=== PATIENT | female | born 1970 | race American Indian/Alaskan Native ===

== ENCOUNTER 2021-03-26 12:47 | Observation (INO) | payer OTHER ==
[2021-03-26] MEDS ORDERED: ASPIRIN 325 MG TAB PO ONE (13:04)
--- NOTE | 2021-03-26 13:35 | Event Note ---
ED Screening Note Date of service: 03/26/21 Time: 13:33 ED Screening Note: 50-year-old female with a past medical history of IN in March 2020 status post 2 stent placement, history of gallstone pancreatitis which was diagnosed about a month ago, EtOH abuse, hypertension and hyperlipidemia presents to the ER today with complaints of epigastric and substernal chest pain. Onset was yesterday. Mainly in epigastric area but this morning started having the substernal chest pain. Reports associated diarrhea which has been black in color, dizziness and lightheadedness. She states that she took a nitro this morning and EMS also gave her nitro which did ease up the pain. She also got 4 baby aspirin's by EMS. Patient states that she was a heavy drinker up until March 2020 when she reduce her intake of alcohol she states that she completely stopped drinking about 6 weeks ago, but she states that her family came into town this past Friday and she had couple beers and liquor. This initial assessment/diagnostic orders/clinical plan/treatment(s) is/are subject to change based on patients health status, clinical progression and re- assessment by fellow clinical providers in the ED. Further treatment and workup at subsequent clinical providers discretion. Patient/guardian urged not to elope from the ED as their condition may be serious if not clinically assessed and managed. Initial orders include: Chest pain work-up including lipase.
--- NOTE | 2021-03-26 13:55 | XRay Report ---
CHEST 2 VIEWS INDICATION / CLINICAL INFORMATION: CHEST PAIN. COMPARISON: None available. FINDINGS: SUPPORT DEVICES: None. HEART / MEDIASTINUM: No significant abnormality. LUNGS / PLEURA: No significant pulmonary or pleural abnormality. No pneumothorax. ADDITIONAL FINDINGS: No significant additional findings. IMPRESSION: 1. No acute findings. Signer Name: Víctor Wang MD Signed: 03/26/2021 1:50 PM Workstation Name: [id number]
[2021-03-26 14:44] LABS: Basophils % (Auto) 0.6 % (0.0-1.8); Eosinophils % (Auto) 0.3 % (0.0-4.3); Hematocrit 38.3 % (30.3-42.9); Lymphocytes # (Auto) 2.1 K/mm3 (1.2-5.4); Lymphocytes % (Auto) 36.7 % (13.4-35.0); Mean Corpuscular HGB Conc 34 % (30-34); Mean Corpuscular Volume 99 fl (79-97); Monocytes # (Auto) 0.4 K/mm3 (0.0-0.8); Monocytes % (Auto) 6.5 % (0.0-7.3); Platelet Count 270 K/mm3 (140-440); Red Blood Count 3.85 M/mm3 (3.65-5.03); Red Cell Distribution Width 12.9 % (13.2-15.2)
[2021-03-26 17:19] LABS: Alanine Aminotransferase 17 units/L (7-56); Albumin 4.3 g/dL (3.9-5); Blood Urea Nitrogen 13 mg/dL (7-17); Calcium 8.9 mg/dL (8.4-10.2); Hemolysis Index 49
[2021-03-26 17:20] LABS: BUN/Creatinine Ratio 22
[2021-03-26] MEDS ORDERED: SODIUM CHLORIDE 0.9% 1000 ML 1,000 ML IV ONE (20:29)
[2021-03-26] MEDS ORDERED: MORPHINE 4 MG/1 ML INJ IV ONE (20:29)
--- NOTE | 2021-03-26 20:41 | Emergency Department Report ---
ED Chest Pain HPI - General Chief Complaint: Chest Pain Stated Complaint: CHEST PAIN Time Seen by Provider: 03/26/21 19:59 Source: patient, EMS Mode of arrival: Wheelchair Limitations: No Limitations - History of Present Illness Initial Comments: This is a 50-year-old -Niuean female presents to the emergency department with a complaint of epigastric abdominal pain since yesterday and some lower midsternal chest pain that started earlier today. Currently she says her discomfort is about a 6 out of 10 in intensity. She was diagnosed with ga llstone pancreatitis about 1 month ago and says that this feels similar but it was much more intense/painful when it first occurred. However the patient does have a history of coronary artery disease with [address] She also has a history of hypertension and is a tobacco smoker. She received a full dose aspirin and 2 sublingual nitroglycerin in route with EMS without much relief. Patient follows with a grounds restoration specialist through [place]. Unknown last stress test but says that her last heart attack was in March of last year. No recent travel or sick contacts at home. - Related Data Allergies Allergy/AdvReac Type Severity Reaction Status Date / Time ketorolac [From Toradol] Allergy Unknown Verified 03/26/21 13:02 latex Allergy Unknown Verified 03/26/21 13:02 Sulfa (Sulfonamide Allergy Unknown Verified 03/26/21 13:02 Antibiotics) tramadol Allergy Unknown Verified 03/26/21 13:02 Heart Score - HEART Score History: Slightly suspicious EKG: Normal Age: 45-65 Risk factors: > 3 risk factors or hx of atherosclerotic disease Troponin: < normal limit HEART Score: 3 - EKG Read Time Time EKG Completed: 13:00 EKG Read Time: 13:05 - Critical Actions Critical Actions: 0-3 pts:0.9-1.7%risk of adverse cardiac event.Candidate for discharge ED Review of Systems ROS: Stated complaint: CHEST PAIN Other details as noted in HPI Comment: All other systems reviewed and negative Constitutional: denies: chills, fever Eyes: denies: eye pain, vision change ENT: denies: ear pain, throat pain Respiratory: shortness of breath. denies: cough Cardiovascular: chest pain. denies: palpitations, edema Gastrointestinal: abdominal pain. denies: vomiting Genitourinary: denies: dysuria, discharge Musculoskeletal: denies: back pain, joint swelling Skin: denies: rash, lesions Neurological: denies: headache, weakness ED Past Medical Hx - Past Medical History Previous Medical History?: Yes Hx Heart Attack/AMI: Yes (STENT X2) Additional medical history: PANCREATITIS ED Physical Exam - General Limitations: No Limitations - Other Other exam information: GENERAL: The patient is well-developed well-nourished. HENT: Normocephalic. Atraumatic. Patient has moist mucous membranes. EYES: Extraocular motions are intact. NECK: Supple. Trachea is midline. CHEST/LUNGS: Clear to auscultation. There is no respiratory distress noted. HEART/CARDIOVASCULAR: Regular. There is no tachycardia. There is no murmur. ABDOMEN: Abdomen is soft. Upper abdominal tenderness to palpation. Patient has normal bowel sounds. There is no abdominal distention. SKIN: Skin is warm and dry. NEURO: The patient is awake, alert, and oriented. The patient is cooperative. The patient has no focal neurologic deficits. Normal speech. MUSCULOSKELETAL: There is no tenderness or deformity. There is no limitation range of motion. RECTAL: No hemorrhoids or external lesions seen. No gross hematochezia. There was not much stool obtained for guaiac testing but what was obtained appears brown and negative on guaiac testing. ED Course Vital Signs 03/26/21 03/26/21 03/26/21 13:02 20:13 20:15 Temperature 98.2 F Pulse Rate 90 77 79 Respiratory 18 16 18 Rate Blood Pressure 166/94 Blood Pressure 132/92 [Right] O2 Sat by Pulse 99 100 100 Oximetry 03/26/21 03/26/21 03/26/21 20:30 20:45 21:00 Temperature Pulse Rate 77 81 77 Respiratory 16 15 15 Rate Blood Pressure 144/87 166/94 186/103 Blood Pressure [Right] O2 Sat by Pulse 100 99 100 Oximetry 03/26/21 03/26/21 03/26/21 21:15 21:30 21:45 Temperature Pulse Rate 74 76 76 Respiratory 17 16 17 Rate Blood Pressure 144/87 155/83 155/83 Blood Pressure [Right] O2 Sat by Pulse 100 100 100 Oximetry 03/26/21 03/26/21 03/26/21 22:00 22:15 22:30 Temperature Pulse Rate 74 74 73 Respiratory 13 13 15 Rate Blood Pressure 147/81 147/81 172/100 Blood Pressure [Right] O2 Sat by Pulse 100 100 100 Oximetry - Reevaluation(s) Reevaluation #1: 03/26/21 22:41 When the admitting hospitalist went to see the patient, she mentioned to him that she had been having dark black stools with some recent diarrhea. I did a rectal examination with nurse Daysi at bedside to financial advocate. There was not much stool obtained during the rectal examination. It appeared brown and was negative on guaiac testing. RADHA score - Radha Score Age > 65: (0) No Aspirin use within the Past 7 Days: (1) Yes 3 or more CAD Risk Factors: (1) Yes 2 or more Angina events in past 24 hrs: (1) Yes Known CAD with more than 50% Stenosis: (1) Yes Elevated Cardiac Markers: (0) No ST Deviation Greater than 0.5mm: (0) No RADHA Score: 4 ED Medical Decision Making - Lab Data Result diagrams: 03/26/21 14:18 03/26/21 15:26 - EKG Data -: EKG Interpreted by Me EKG shows normal: sinus rhythm, axis, intervals, QRS complexes, ST-T waves Rate: normal - EKG Data When compared to previous EKG there are: previous EKG unavailable Interpretation: normal EKG - Radiology Data Radiology results: report reviewed, image reviewed interpreted by me: Chest x-ray does not show any acute process. There are no pleural effusions, obvious pneumonia and there is no pneumothorax. No significant cardiomegaly. ULTRASOUND ABDOMEN, LIMITED (RIGHT UPPER QUADRANT) INDICATION / CLINICAL INFORMATION: upper abdominal pain. COMPARISON: None available. FINDINGS: PANCREAS: Visualized portion shows no significant abnormality. LIVER: No significant abnormality. GALLBLADDER: No significant abnormality. BILE DUCTS: No significant abnormality. Common bile duct measures 2 mm. FREE FLUID: None. ADDITIONAL FINDINGS: None. IMPRESSION: 1. No significant sonographic abnormality of the right upper quadrant. - Medical Decision Making This patient presents to the emergency department with a complaint of upper abdominal pain and midsternal chest pain. EKG did not have any morphology consistent with ST elevation myocardial infarction. Chest x-ray does not show any pneumonia, pleural effusions, pneumothorax, or any other acute process. On examination the patient has normal sounding heart and lungs to auscultation. She does not appear in any respiratory or acute distress. There is reproducible abdominal tenderness to palpation. Patient's labs have been mostly unremarkable including CBC, metabolic panel, negative troponins x3, but she had a slightly elevated lipase level. She says that she has a recent history of cholelithiasis. Upper abdominal ultrasound is negative for any cholelithiasis, cholecystitis, obvious pancreatitis, or any other acute processes. The patient has a moderate heart and RADHA score. She has a history of coronary artery disease with cardiac stents in place. I was unable to find an obvious GI reason for her chest pain. For this reason, the patient will be admitted to the hospital for further evaluation and has been accepted for admission by the hospitalist, Dr Grimes. Critical Care Time: No Critical care attestation.: If time is entered above; I have spent that time in minutes in the direct care of this critically ill patient, excluding procedure time. ED Disposition Clinical Impression: Acute chest pain, Tobacco use Hypertension Qualifiers: Hypertension type: essential hypertension Qualified Code(s): I10 - Essential (primary) hypertension Abdominal pain Qualifiers: Abdominal location: upper abdomen, unspecified Qualified Code(s): R10.10 - Upper abdominal pain, unspecified Disposition: DC-09 OP ADMIT IP TO THIS HOSP Is pt being admited?: Yes Condition: Fair Time of Disposition: 22:23
--- NOTE | 2021-03-26 22:19 | Ultrasound Report ---
I'v ULTRASOUND ABDOMEN, LIMITED (RIGHT UPPER QUADRANT) INDICATION / CLINICAL INFORMATION: upper abdominal pain. COMPARISON: None available. FINDINGS: PANCREAS: Visualized portion shows no significant abnormality. LIVER: No significant abnormality. GALLBLADDER: No significant abnormality. BILE DUCTS: No significant abnormality. Common bile duct measures 2 mm. FREE FLUID: None. ADDITIONAL FINDINGS: None. IMPRESSION: 1. No significant sonographic abnormality of the right upper quadrant. Signer Name: Nicolás Beatty MD Signed: 03/26/2021 10:15 PM Workstation Name: [id number]
[2021-03-26] MEDS ORDERED: ACETAMINOPHEN 325 MG TAB PO PRN ×2 (23:13)
[2021-03-26] MEDS ORDERED: MORPHINE 2 MG/1 ML INJ IV PRN (23:13)
[2021-03-26] MEDS ORDERED: MAGNESIUM HYDROXIDE (MOM) ORAL LIQD UDC PO PRN (23:13)
[2021-03-26] MEDS ORDERED: ONDANSETRON 4 MG/2 ML INJ IV PRN (23:13)
[2021-03-26] MEDS ORDERED: NITROGLYCERIN 0.4 MG TAB SUBL SL PRN (23:13)
[2021-03-26] MEDS ORDERED: LIDOCAINE VISCOUS 2% 15 ML ORAL LIQD PO ONE (23:15)
[2021-03-26] MEDS ORDERED: ALUM-MAG HYDROXIDE-SIMETHICONE 200-200-20MG/5ML ORAL LIQD 30 ML PO ONE (23:30)
[2021-03-26] MEDS ORDERED: diphenhydrAMINE 25 MG/10 ML ORAL LIQUID FEEDTUBE ONE (23:30)
--- NOTE | 2021-03-26 23:36 | History and Physical Report ---
History of Present Illness Date of examination: 03/26/21 Date of admission: 03/26/21 22:23 Chief complaint: Abdominal pain Chest pain History of present illness: 50-year-old -[place] female with known history of coronary artery disease with stent placement in the past presenting in the emergency room via EMS today complaining of epigastric abdominal pain and some midsternal chest pain both of which started yesterday. On a scale of 10 pain was about 6-7 over 10 in severity. Patient indicates she was diagnosed with gallstone and pancreatitis about a month ago and feels the pain is similar to when she had that episode. There is no no relieving or exacerbating factor. Patient is a current daily smoker. She received a full dose of aspirin and 2 sublingual nitroglycerin in route to the hospital without any significant relief. She also indicates that she has been taking some ibuprofen lately and has had black stool. She denies any bright red blood per rectum. She denies any hematemesis, no nausea vomiting, no headache or dizziness. Patient indicates she has been out of her blood pressure medications for couple of months and therefore has not been quite compliant. Work-up in the emergency room today has been unremarkable. Stool Hemoccult both done by ER physician-negative Patient is being admitted with chest pain and abdominal pain for evaluation. Past History Past Medical History: CAD (With stents in the past), other (History of pancreatitis) Past Surgical History: PTCA Social history: smoking (Current daily smoker), alcohol abuse (Drinks alcohol occasionally) Family history: no significant family history Medications and Allergies Allergies Allergy/AdvReac Type Severity Reaction Status Date / Time ketorolac [From Toradol] Allergy Unknown Verified 03/26/21 13:02 latex Allergy Unknown Verified 03/26/21 13:02 Sulfa (Sulfonamide Allergy Unknown Verified 03/26/21 13:02 Antibiotics) tramadol Allergy Unknown Verified 03/26/21 13:02 Active Meds: Active Medications Al Hydrox/Mg Hydrox/Simethicone (Alum-Mag Hydroxide-Simethicone 348-361-99gr/5ml Oral Liqd 30 Ml) 30 ml PO ONCE ONE Stop: 03/26/21 23:31 Last Admin: 03/26/21 23:21 Dose: 30 ml Documented by: Diphenhydramine HCl (Diphenhydramine 25 Mg/10 Ml Oral Liquid) 25 mg FEEDTUBE ONCE ONE Stop: 03/26/21 23:31 Last Admin: 03/26/21 23:21 Dose: 25 mg Documented by: Review of Systems Constitutional: no fever, no chills Ears, nose, mouth and throat: no nasal congestion, no sore throat Cardiovascular: chest pain, no palpitations Respiratory: no cough, no shortness of breath Gastrointestinal: abdominal pain, other (Black stool), no nausea, no vomiting, no diarrhea Genitourinary Female: no pelvic pain, no flank pain, no dysuria, no hematuria Musculoskeletal: no neck pain, no low back pain Integumentary: no rash, no pruritis Neurological: no headaches, no confusion Psychiatric: no anxiety, no depression Endocrine: no polyphagia, no polydipsia, no polyuria, no nocturia Exam - Constitutional Vitals: Temp Pulse Resp BP Pulse Ox 98.2 F 68 13 167/95 100 03/26/21 13:02 03/26/21 23:00 03/26/21 23:00 03/26/21 23:00 03/26/21 23:00 General appearance: Present: no acute distress, well-nourished - EENT Eyes: Present: PERRL, EOM intact. Absent: scleral icterus ENT: hearing intact, clear oral mucosa, dentition normal - Neck Neck: Present: supple, normal ROM - Respiratory Respiratory effort: normal Respiratory: bilateral: CTA - Cardiovascular Rhythm: regular Heart Sounds: Present: S1 & S2. Absent: gallop, systolic murmur, diastolic murmur, rub, click - Extremities Extremities: no ischemia, pulses intact, pulses symmetrical, No edema, normal temperature, normal color, Full ROM Peripheral Pulses: within normal limits - Abdominal General gastrointestinal: Present: soft, tender (Mild epigastric tenderness with minimal guarding, no rebound tenderness and no masses), non-distended, normal bowel sounds. Absent: mass - Integumentary Integumentary: Present: clear, warm, dry - Musculoskeletal Musculoskeletal: strength equal bilaterally - Psychiatric Psychiatric: appropriate mood/affect, intact judgment & insight, memory intact, cooperative - Neurologic Neurologic: CNII-XII intact, no focal deficits, moves all extremities HEART Score - HEART Score History: Slightly suspicious EKG: Normal Age: 45-65 Risk factors: > 3 risk factors or hx of atherosclerotic disease Troponin: Troponin T < 0.010 ng/mL (0.00-0.029) 03/26/21 21:16 Troponin: < normal limit HEART Score: 3 - Critical Actions Critical Actions: 0-3 pts:0.9-1.7%risk of adverse cardiac event.Candidate for discharge Results - Labs CBC & Chem 7: 03/26/21 14:18 03/26/21 15:26 Labs: Abnormal lab results 03/26/21 03/26/21 03/26/21 Range/Units 13:32 14:18 15:26 MCV 99 H (79-97) fl MCH 34 H (28-32) pg RDW 12.9 L (13.2-15.2) % Lymph % (Auto) 36.7 H (13.4-35.0) % Carbon Dioxide 15 L (22-30) mmol/L Glucose 45 L (65-100) mg/dL AST 48 H (5-40) units/L Lipase 64 H (13-60) units/L Assessment and Plan - Patient Problems (1) Acute chest pain Current Visit: Yes Status: Acute Plan to address problem: Patient admitted and placed on telemetry.. We will check serial cardiac enzymes. Patient started on aspirin, sublingual nitroglycerin and IV morphine as needed for chest pain. Patient will be scheduled for echocardiogram and stress test. We await further evaluation and recommendation from cardiology. (2) Abdominal pain Current Visit: Yes Status: Acute Qualifiers: Abdominal location: upper abdomen, unspecified Qualified Code(s): R10.10 - Upper abdominal pain, unspecified Plan to address problem: Possibly secondary to gastritis. Patient given GI cocktail in the emergency room. Will place on proton pump inhibitor. (3) Hypertension Current Visit: Yes Status: Acute Qualifiers: Hypertension type: essential hypertension Qualified Code(s): I10 - Essential (primary) hypertension Plan to address problem: Patient states she ran out of blood pressure medications few months ago and has not been quite compliant. We will resume routine home medications and monitor vital signs closely. Compliance has been encouraged. (4) Tobacco use Current Visit: Yes Status: Acute Plan to address problem: Patient counseled on quitting tobacco abuse. We will offer nicotine patch as needed. (5) DVT prophylaxis Current Visit: Yes Status: Acute Plan to address problem: Patient placed on subcutaneous heparin. (6) Full code status Current Visit: Yes Status: Acute Plan to address problem: Patient is full code.
[2021-03-27] MEDS ORDERED: hydrALAZINE 20 MG/1 ML INJ IV PRN (00:17)
[2021-03-27 06:04] LABS: Hematocrit 38.4 % (30.3-42.9); Hemoglobin 13.1 gm/dl (10.1-14.3); Mean Corpuscular HGB Conc 34 % (30-34); Mean Corpuscular Volume 101 fl (79-97); Platelet Count 242 K/mm3 (140-440); Red Blood Count 3.81 M/mm3 (3.65-5.03); Red Cell Distribution Width 12.7 % (13.2-15.2)
[2021-03-27 06:09] LABS: Blood Urea Nitrogen 9 mg/dL (7-17); Calcium 8.5 mg/dL (8.4-10.2); Hemolysis Index 7
[2021-03-27 06:12] LABS: Chol/HDL Ratio 2.58 %
[2021-03-27 06:17] LABS: BUN/Creatinine Ratio 15
[2021-03-27 06:18] LABS: Basophils % (Auto) 1.4 % (0.0-1.8); Eosinophils % (Auto) 1.2 % (0.0-4.3); Lymphocytes # (Auto) 0.6 K/mm3 (1.2-5.4); Lymphocytes % (Auto) 12.7 % (13.4-35.0); Monocytes % (Auto) 0.6 % (0.0-7.3)
[2021-03-27 06:19] LABS: Basophils # (Auto) 0.1 K/mm3 (0.0-0.1); Eosinophils # (Auto) 0.1 K/mm3 (0.0-0.4)
[2021-03-27] MEDS: HEPARIN 5,000 UNIT/1 ML VIAL SUB-Q SCH ×2 (06:37→14:22)
[2021-03-27 07:12] LABS: Platelet Estimate Consistent w Auto; Total Cells Counted 100
[2021-03-27 07:51] LABS: INR 0.9 (0.87-1.13)
[2021-03-27] MEDS ORDERED: POTASSIUM CHLORIDE 20 MEQ 20 MEQ/100 ML BAG IV SCH (08:00)
[2021-03-27] MEDS ORDERED: PANTOPRAZOLE 40 MG INJ IV SCH (10:00)
[2021-03-27] MEDS ORDERED: ASPIRIN EC 325 MG TAB PO SCH (10:00)
[2021-03-27] MEDS ORDERED: POTASSIUM CHLORIDE ER 20 MEQ TAB PO ONE (11:00)
--- NOTE | 2021-03-27 12:11 | Consultation ---
History of Present Illness Consult date: 03/27/21 Consult reason: chest pain History of present illness: This is a 50 year old woman who reports she was hospitalized at [facility] 3 weeks ago with acute cholelithiasis and acute pancreatitis. She presents to this hospital with abdominal pain, nausea and vomiting, admitted for further evaluation. Patient admits to drinking alcohol and several beers 2 days ago. Chest x-ray is negative and a 12-lead ECG is benign, normal sinus rhythm. A car diology consultation was requested for chest pain. Patient has a history of coronary artery disease. A year ago she was hospitalized at [place] an underwent angioplasty with stenting of the distal RCA. No other significant coronary lesions. Normal left ventricular systolic function with an ejection fraction 60% by echocardiogram. Patient takes prasugrel and low dose aspirin and reports compliance. She also walks 45 minutes daily and works out 3 times a week without difficulty. Past History Past Medical History: CAD, hypertension, other (History of pancreatitis) Past Surgical History: PTCA Social history: smoking (Current daily smoker), alcohol abuse (Drinks alcohol occasionally) Family history: no significant family history Medications and Allergies Allergies Allergy/AdvReac Type Severity Reaction Status Date / Time ketorolac [From Toradol] Allergy Unknown Verified 03/26/21 13:02 latex Allergy Unknown Verified 03/26/21 13:02 Sulfa (Sulfonamide Allergy Unknown Verified 03/26/21 13:02 Antibiotics) tramadol Allergy Unknown Verified 03/26/21 13:02 Active Meds: Active Medications Acetaminophen (Acetaminophen 325 Mg Tab) 650 mg PO Q4H PRN PRN Reason: Pain MILD(1-3)/Fever >100.5/ZHAO Aspirin (Aspirin Ec 325 Mg Tab) 325 mg PO QDAY [facility] Heparin Sodium (Porcine) (Heparin 5,000 Unit/1 Ml Vial) 5,000 unit SUB-Q Q8HR [facility] Last Admin: 03/27/21 06:37 Dose: Not Given Documented by: Hydralazine HCl (Hydralazine 20 Mg/1 Ml Inj) 10 mg IV Q4H PRN PRN Reason: Blood Pressure Magnesium Hydroxide (Magnesium Hydroxide (Mom) Oral Liqd Udc) 30 ml PO Q4H PRN PRN Reason: Constipation Morphine Sulfate (Morphine 2 Mg/1 Ml Inj) 2 mg IV Q5MIN PRN PRN Reason: Chest Pain Last Admin: 03/27/21 04:24 Dose: 2 mg Documented by: Nitroglycerin (Nitroglycerin 0.4 Mg Tab Subl) 0.4 mg SL Q5M PRN PRN Reason: Chest Pain Ondansetron HCl (Ondansetron 4 Mg/2 Ml Inj) 4 mg IV Q8H PRN PRN Reason: Nausea And Vomiting Pantoprazole Sodium (Pantoprazole 40 Mg Inj) 40 mg IV QDAY LIZ Sodium Chloride (Sodium Chloride 0.9% 10 Ml Flush Syringe) 10 ml IV BID LIZ Sodium Chloride (Sodium Chloride 0.9% 10 Ml Flush Syringe) 10 ml IV PRN PRN PRN Reason: LINE FLUSH Review of Systems Cardiovascular: no chest pain, no palpitations, no edema, no syncope, no bobo rtness of breath Gastrointestinal: abdominal pain, nausea, vomiting Physical Examination Vital Signs Temp Pulse Resp BP Pulse Ox 98.2 F 90 18 132/92 99 03/26/21 13:02 03/26/21 13:02 03/26/21 13:02 03/26/21 13:02 03/26/21 13:02 General appearance: no acute distress HEENT: Positive: PERRL Neck: Positive: trachea midline Cardiac: Positive: Reg Rate and Rhythm Lungs: Positive: Normal Breath Sounds Neuro: Positive: Grossly Intact Extremities: Absent: edema Results 03/27/21 04:28 03/27/21 04:28 Cardiac Enzymes 03/26/21 Range/Units 15:26 AST 48 H (5-40) units/L Coagulation 03/27/21 Range/Units 07:28 PT 12.0 L (12.2-14.9) Sec. INR 0.90 (0.87-1.13) Lipids 03/27/21 Range/Units 04:28 Triglycerides 133 (2-149) mg/dL Cholesterol 168 (50-199) mg/dL HDL Cholesterol 65 H (40-59) mg/dL Cholesterol/HDL Ratio 2.58 % CBC 03/26/21 03/27/21 Range/Units 14:18 04:28 WBC 5.8 4.6 (4.5-11.0) K/mm3 RBC 3.85 3.81 (3.65-5.03) M/mm3 Hgb 13.0 13.1 (10.1-14.3) gm/dl Hct 38.3 38.4 (30.3-42.9) % Plt Count 270 242 (140-440) K/mm3 Lymph # (Auto) 2.1 0.6 L (1.2-5.4) K/mm3 [place] # (Auto) 0.4 0.0 (0.0-0.8) K/mm3 Eos # (Auto) 0.0 0.1 (0.0-0.4) K/mm3 Baso # (Auto) 0.0 0.1 (0.0-0.1) K/mm3 Comprehensive Metabolic Panel 03/26/21 03/27/21 Range/Units 15:26 04:28 Sodium 144 141 (137-145) mmol/L Potassium 4.4 3.3 L D (3.6-5.0) mmol/L Chloride 104.7 103.1 (98-107) mmol/L Carbon Dioxide 15 L 26 D (22-30) mmol/L BUN 13 9 (7-17) mg/dL Creatinine 0.6 0.6 (0.6-1.2) mg/dL Glucose 45 L 62 L (65-100) mg/dL Calcium 8.9 8.5 (8.4-10.2) mg/dL AST 48 H (5-40) units/L ALT 17 (7-56) units/L Alkaline Phosphatase 101 (35-129) units/L Total Protein 6.7 (6.3-8.2) g/dL Albumin 4.3 (3.9-5) g/dL Assessment and Plan - Patient Problems (1) Abdominal pain Current Visit: Yes Status: Acute Qualifiers: Qualified Code(s): R10.10 - Upper abdominal pain, unspecified
[2021-03-27] MEDS ORDERED: ASPIRIN EC 81 MG TAB PO SCH (13:00)
[2021-03-27] MEDS ORDERED: LOSARTAN 50 MG TAB PO SCH (13:00)
[2021-03-27] MEDS ORDERED: METOPROLOL SUCCINATE XL 50 MG TAB PO SCH (13:00)
[2021-03-27] MEDS ORDERED: PRASUGREL 10 MG TAB PO SCH (13:00)
--- NOTE | 2021-03-27 13:16 | Progress Note ---
Assessment and Plan Assessment and plan: #Epigastric pain-possible gastritis versus peptic ulcer disease Patient has epigastrium tenderness on palpation Reports taking ibuprofen lately. Patient is on aspirin and prasugrel GI has been consulted for further evaluation Patient may need EGD Continue PPI IV #Hypertension Continue home medications #Tobacco abuse Tobacco counseling provided #DVT prophylaxis-SCDs only History Interval history: 50-year-old -[place] female with known history of coronary artery disease with stent placement in the past presenting in the emergency room via EMS today complaining of epigastric abdominal pain and some midsternal chest pain both of which started yesterday. On a scale of 10 pain was about 6-7 over 10 in severity. Patient indicates she was diagnosed with gallstone and pancreatitis about a month ago and feels the pain is similar to when she had that episode. There is no no relieving or exacerbating factor. Patient is a current daily smoker. She received a full dose of aspirin and 2 sublingual nitroglycerin in route to the hospital without any significant relief. She also indicates that she has been taking some ibuprofen lately and has had black stool. She denies any bright red blood per rectum. She denies any hematemesis, no nausea vomiting, no headache or dizziness. Patient indicates she has been out of her blood pressure medications for couple of months and therefore has not been quite compliant. Work-up in the emergency room today has been unremarkable. Stool Hemoccult both done by ER physician-negative Patient is being admitted with chest pain and abdominal pain for evaluation. Hospital course 03/27. Medication for ischemic work-up as patient's symptoms are GI related. Continue PPI. Patient notes that she has been taking ibuprofen lately and mentions having a black stool. She is on aspirin and prasugrel. Her hemoglobin is stable however. Given upper GI symptoms, will consult GI for further evaluation. Home medications continued Hospitalist Physical - Physical exam Narrative exam: VITAL SIGNS: Reviewed. GENERAL: Awake HEAD: No signs of head trauma. EYES: Pupils are equal. Extraocular motions intact. MOUTH: Oropharynx is normal. NECK: No adenopathy, no JVD. CHEST: Chest with diminished breath sounds bilaterally. No wheezes, rales, or rhonchi. CARDIAC: normal S1 and S2, without murmurs, gallops, or rubs. ABDOMEN: Soft, tender epigastrium MUSCULOSKELETAL: No edema NEUROLOGIC EXAM: Alert and oriented x3. No focal neurologic deficits SKIN: No obvious lesions - Constitutional Vitals: Temp Pulse Resp BP Pulse Ox 99.0 F 80 18 157/91 99 03/27/21 07:32 03/27/21 07:56 03/27/21 07:32 03/27/21 07:32 03/27/21 07:32 HEART Score - HEART Score EKG: Normal Age: 45-65 Risk factors: > 3 risk factors or hx of atherosclerotic disease Troponin: Troponin T < 0.010 ng/mL (0.00-0.029) 03/27/21 04:28 Troponin: < normal limit - Critical Actions Critical Actions: 0-3 pts:0.9-1.7%risk of adverse cardiac event.Candidate for discharge Results - Labs CBC & Chem 7: 03/27/21 04:28 03/27/21 04:28 Labs: Laboratory Last Values WBC 4.6 K/mm3 (4.5-11.0) 03/27/21 04:28 RBC 3.81 M/mm3 (3.65-5.03) 03/27/21 04:28 Hgb 13.1 gm/dl (10.1-14.3) 03/27/21 04:28 Hct 38.4 % (30.3-42.9) 03/27/21 04:28 MCV 101 fl (79-97) H 03/27/21 04:28 MCH 34 pg (28-32) H 03/27/21 04:28 MCHC 34 % (30-34) 03/27/21 04:28 RDW 12.7 % (13.2-15.2) L 03/27/21 04:28 Plt Count 242 K/mm3 (140-440) 03/27/21 04:28 Lymph % (Auto) 12.7 % (13.4-35.0) L 03/27/21 04:28 Villalba % (Auto) 0.6 % (0.0-7.3) 03/27/21 04:28 Eos % (Auto) 1.2 % (0.0-4.3) 03/27/21 04:28 Baso % (Auto) 1.4 % (0.0-1.8) 03/27/21 04:28 Lymph # (Auto) 0.6 K/mm3 (1.2-5.4) L 03/27/21 04:28 Villalba # (Auto) 0.0 K/mm3 (0.0-0.8) 03/27/21 04:28 Eos # (Auto) 0.1 K/mm3 (0.0-0.4) 03/27/21 04:28 Baso # (Auto) 0.1 K/mm3 (0.0-0.1) 03/27/21 04:28 Add Manual Diff Complete 03/27/21 04:28 Total Counted 100 03/27/21 04:28 Seg Neutrophils % 54.7 % (40.0-70.0) 03/27/21 04:28 Seg Neuts % (Manual) 27.0 % (40.0-70.0) L 03/27/21 04:28 Lymphocytes % (Manual) 65.0 % (13.4-35.0) H 03/27/21 04:28 Monocytes % (Manual) 7.0 % (0.0-7.3) 03/27/21 04:28 Basophils % (Manual) 1.0 % (0.0-1.8) 03/27/21 04:28 Nucleated RBC % Not Reportable 03/27/21 04:28 Seg Neutrophils # 2.5 K/mm3 (1.8-7.7) 03/27/21 04:28 Seg Neutrophils # Man 1.2 K/mm3 (1.8-7.7) L 03/27/21 04:28 Band Neutrophils # 0.0 K/mm3 03/27/21 04:28 Lymphocytes # (Manual) 3.0 K/mm3 (1.2-5.4) 03/27/21 04:28 Abs React Lymphs (Man) 0.0 K/mm3 03/27/21 04:28 Monocytes # (Manual) 0.3 K/mm3 (0.0-0.8) 03/27/21 04:28 Eosinophils # (Manual) 0.0 K/mm3 (0.0-0.4) 03/27/21 04:28 Basophils # (Manual) 0.0 K/mm3 (0.0-0.1) 03/27/21 04:28 Metamyelocytes # 0.0 K/mm3 03/27/21 04:28 Myelocytes # 0.0 K/mm3 03/27/21 04:28 Promyelocytes # 0.0 K/mm3 03/27/21 04:28 Blast Cells # 0.0 K/mm3 03/27/21 04:28 WBC Morphology Not Reportable 03/27/21 04:28 Hypersegmented Neuts Not Reportable 03/27/21 04:28 Hyposegmented Neuts Not Reportable 03/27/21 04:28 Hypogranular Neuts Not Reportable 03/27/21 04:28 Smudge Cells Not Reportable 03/27/21 04:28 Toxic Granulation Not Reportable 03/27/21 04:28 Toxic Vacuolation Not Reportable 03/27/21 04:28 Dohle Bodies Not Reportable 03/27/21 04:28 Pelger-Huet Anomaly Not Reportable 03/27/21 04:28 Lee Rods Not Reportable 03/27/21 04:28 Platelet Estimate Consistent w auto 03/27/21 04:28 Clumped Platelets Not Reportable 03/27/21 04:28 Plt Clumps, EDTA Not Reportable 03/27/21 04:28 Large Platelets Not Reportable 03/27/21 04:28 Giant Platelets Not Reportable 03/27/21 04:28 Platelet Satelliting Not Reportable 03/27/21 04:28 Plt Morphology Comment Not Reportable 03/27/21 04:28 RBC Morphology Not Reportable 03/27/21 04:28 Dimorphic RBCs Not Reportable 03/27/21 04:28 Polychromasia Not Reportable 03/27/21 04:28 Hypochromasia Not Reportable 03/27/21 04:28 Poikilocytosis Not Reportable 03/27/21 04:28 Anisocytosis Not Reportable 03/27/21 04:28 Microcytosis Not Reportable 03/27/21 04:28 Macrocytosis Not Reportable 03/27/21 04:28 Spherocytes Not Reportable 03/27/21 04:28 Pappenheimer Bodies Not Reportable 03/27/21 04:28 Sickle Cells Not Reportable 03/27/21 04:28 Target Cells Not Reportable 03/27/21 04:28 Tear Drop Cells Not Reportable 03/27/21 04:28 Ovalocytes Not Reportable 03/27/21 04:28 Helmet Cells Not Reportable 03/27/21 04:28 Ayala-[place] Bodies Not Reportable 03/27/21 04:28 [place] Rings Not Reportable 03/27/21 04:28 Claude Cells Not Reportable 03/27/21 04:28 Bite Cells Not Reportable 03/27/21 04:28 Crenated Cell Not Reportable 03/27/21 04:28 Elliptocytes Not Reportable 03/27/21 04:28 Acanthocytes (Spur) Not Reportable 03/27/21 04:28 Rouleaux Not Reportable 03/27/21 04:28 Hemoglobin C Crystals Not Reportable 03/27/21 04:28 Schistocytes Not Reportable 03/27/21 04:28 Malaria parasites Not Reportable 03/27/21 04:28 Harsha Bodies Not Reportable 03/27/21 04:28 Hem Pathologist Commnt No 03/27/21 04:28 PT 12.0 Sec. (12.2-14.9) L 03/27/21 07:28 INR 0.90 (0.87-1.13) 03/27/21 07:28 Sodium 141 mmol/L (137-145) 03/27/21 04:28 Potassium 3.3 mmol/L (3.6-5.0) L D 03/27/21 04:28 Chloride 103.1 mmol/L (98-107) 03/27/21 04:28 Carbon Dioxide 26 mmol/L (22-30) D 03/27/21 04:28 Anion Gap 15 mmol/L 03/27/21 04:28 BUN 9 mg/dL (7-17) 03/27/21 04:28 Creatinine 0.6 mg/dL (0.6-1.2) 03/27/21 04:28 Estimated GFR > 60 ml/min 03/27/21 04:28 BUN/Creatinine Ratio 15 % 03/27/21 04:28 Glucose 62 mg/dL (65-100) L 03/27/21 04:28 Calcium 8.5 mg/dL (8.4-10.2) 03/27/21 04:28 Total Bilirubin 0.50 mg/dL (0.1-1.2) 03/26/21 15:26 AST 48 units/L (5-40) H 03/26/21 15:26 ALT 17 units/L (7-56) 03/26/21 15:26 Alkaline Phosphatase 101 units/L (35-129) 03/26/21 15:26 Troponin T < 0.010 ng/mL (0.00-0.029) 03/27/21 04:28 Total Protein 6.7 g/dL (6.3-8.2) 03/26/21 15:26 Albumin 4.3 g/dL (3.9-5) 03/26/21 15:26 Albumin/Globulin Ratio 1.8 % 03/26/21 15:26 Triglycerides 133 mg/dL (2-149) 03/27/21 04:28 Cholesterol 168 mg/dL (50-199) 03/27/21 04:28 LDL Cholesterol Direct 91 mg/dL (50-130) 03/27/21 04:28 HDL Cholesterol 65 mg/dL (40-59) H 03/27/21 04:28 Cholesterol/HDL Ratio 2.58 % 03/27/21 04:28 Lipase 64 units/L (13-60) H 03/26/21 13:32 Ott/IV: Voiding Method Toilet Active Medications - Current Medications Current Medications: Generic Name Dose Route Start Last Admin Trade Name Freq PRN Reason Stop Dose Admin Acetaminophen 650 mg 03/26/21 23:13 Acetaminophen 325 Mg Tab PO Q4H PRN Pain MILD(1-3)/Fever >100.5/ZHAO Aspirin 81 mg 03/27/21 13:00 Aspirin Ec 81 Mg Tab PO QDAY [facility] Atorvastatin Calcium 40 mg 03/27/21 22:00 Atorvastatin 40 Mg Tab PO QHS [facility] Heparin Sodium (Porcine) 5,000 unit 03/27/21 06:00 03/27/21 06:37 Heparin 5,000 Unit/1 Ml Vial SUB-Q Not Given Q8HR [facility] Hydralazine HCl 10 mg 03/27/21 00:17 Hydralazine 20 Mg/1 Ml Inj IV Q4H PRN Blood Pressure Losartan Potassium 50 mg 03/27/21 13:00 Losartan 50 Mg Tab PO QDAY [facility] Magnesium Hydroxide 30 ml 03/26/21 23:13 Magnesium Hydroxide (Mom) Oral Liqd Udc PO Q4H PRN Constipation Metoprolol Succinate 50 mg 03/27/21 13:00 Metoprolol Succinate Xl 50 Mg Tab PO QDAY [facility] Morphine Sulfate 2 mg 03/26/21 23:13 03/27/21 04:24 Morphine 2 Mg/1 Ml Inj IV 2 mg Q5MIN PRN Administration Chest Pain Nitroglycerin 0.4 mg 03/26/21 23:13 Nitroglycerin 0.4 Mg Tab Subl SL Q5M PRN Chest Pain Ondansetron HCl 4 mg 03/26/21 23:13 Ondansetron 4 Mg/2 Ml Inj IV Q8H PRN Nausea And Vomiting Pantoprazole Sodium 40 mg 03/27/21 10:00 Pantoprazole 40 Mg Inj IV QDAY [facility] Prasugrel 10 mg 03/27/21 13:00 Prasugrel 10 Mg Tab PO QDAY [facility] Sodium Chloride 10 ml 03/27/21 10:00 Sodium Chloride 0.9% 10 Ml Flush Syringe IV BID LIZ Sodium Chloride 10 ml 03/26/21 23:13 Sodium Chloride 0.9% 10 Ml Flush Syringe IV PRN PRN LINE FLUSH
[2021-03-27] MEDS ORDERED: MORPHINE 2 MG/1 ML INJ IV PRN (14:06)
[2021-03-27] MEDS ORDERED: POTASSIUM CHLORIDE ER 20 MEQ TAB PO SCH (14:30)
--- NOTE | 2021-03-27 17:23 | Discharge Summary ---
Providers - Providers Date of Admission: 03/26/21 22:23 Date of discharge: 03/27/21 Attending physician: JULIO C MERA 03/26/21 Consult to Cardiac Rehabilitation [CONS] Routine Reason For Exam: Phase I 03/26/21 23:14 Consult to Cardiology [CONS] Routine Consulting Provider: ALEJANDRO YAN Reason For Exam: chest pain 03/27/21 12:58 Consult to Physician [CONS] Routine Comment: Consulting Provider: JIMENA BOCANEGRA Physician Instructions: Reason For Exam: Dyspepsia Primary care physician: DIALYSIS TECH Hospitalization Condition: Fair Hospital course: 50-year-old -[place] female with known history of coronary artery disease with stent placement in the past presenting in the emergency room via EMS today complaining of epigastric abdominal pain and some midsternal chest pain both of which started yesterday. On a scale of 10 pain was about 6-7 over 10 in severity. Patient indicates she was diagnosed with gallstone and pancreatitis about a month ago and feels the pain is similar to when she had that episode. There is no no relieving or exacerbating factor. Patient is a current daily smoker. She received a full dose of aspirin and 2 sublingual nitroglycerin in route to the hospital without any significant relief. She also indicates that she has been taking some ibuprofen lately and has had black stool. She denies any bright red blood per rectum. She denies any hematemesis, no nausea vomiting, no headache or dizziness. Patient indicates she has been out of her blood pressure medications for couple of months and therefore has not been quite compliant. Work-up in the emergency room today has been unremarkable. Stool Hemoccult both done by ER physician-negative Patient is being admitted with chest pain and abdominal pain for evaluation. Hospital course 03/27. No indication for ischemic work-up as patient's symptoms are GI related. Cardiology already cleared for discharge. Continue PPI. Patient notes that she has been taking ibuprofen lately and mentions having a black stool. She states she has been drinking a lot lately. She is on aspirin and prasugrel. Her hemoglobin is stable however. Given upper GI symptoms, will consult GI for further evaluation. Home medications continued Patient was seen by GI and has been cleared for discharge. She will continue pantoprazole and has been told to abstain from alcohol intake. She agrees with plan Disposition: - TO HOME OR SELFCARE Final Discharge Diagnosis (Prints w/discharge instructions): Dyspepsia Time spent for discharge: 20 mins Core Measure Documentation - Palliative Care Palliative Care/ Comfort Measures: Not Applicable - Core Measures Any of the following diagnoses?: none Exam - Constitutional Vitals: Temp Pulse Resp BP Pulse Ox 98.1 F 80 18 175/104 97 03/27/21 16:41 03/27/21 16:42 03/27/21 16:41 03/27/21 16:41 03/27/21 16:41 Plan Diet: low fat, low cholesterol, low salt Additional Instructions: Continue pantoprazole. Abstain from alcohol intake. Follow up with your PCP in 1-2 weeks Follow up with: PRIMARY CARE, [Primary Care Provider] - 7 Days Prescriptions: Pantoprazole [Protonix TAB] 40 mg PO QDAY #30 tablet
[2021-03-27 17:26] VITALS: BP 175/86
--- NOTE | 2021-03-27 17:29 | Gastroenterology Consultation ---
History of Present Illness - Reason for Consult Consult date: 03/27/21 N/V/Pain Requesting physician: JULIO C MERA - History of Present Illness The patient is a 50 yo female with epigastric pain and N/V. She was admitted for similar sx at [facility] 3 weeks ago. At that time, she was told "GS Pancreatitis" however, she has not f/u with the surgeon. In addition, she continues to consume EtOH on a near daily basis. She has no blood in her stools or emesis, and denies recent weight loss. There is only minimal elevation of the lipase and LFTs. She has no new medications, and denies a family hx of pancreatitis. Today, she has tolerated a regular diet. Of note, per the nursing staff, she requests a large amount of supplemental narcotics without obvious distress. Past History Past Medical History: CAD, hypertension, other (History of pancreatitis) Past Surgical History: PTCA Social history: smoking (Current daily smoker), alcohol abuse (Drinks alcohol occasionally) Family history: no significant family history Medications and Allergies Allergies Allergy/AdvReac Type Severity Reaction Status Date / Time ketorolac [From Toradol] Allergy Unknown Verified 03/26/21 13:02 latex Allergy Unknown Verified 03/26/21 13:02 Sulfa (Sulfonamide Allergy Unknown Verified 03/26/21 13:02 Antibiotics) tramadol Allergy Unknown Verified 03/26/21 13:02 Home Medications Medication Instructions Recorded Confirmed Last Taken Type Pantoprazole [Protonix TAB] 40 mg PO QDAY #30 tablet 03/27/21 Unknown Rx Active Meds: Active Medications Acetaminophen (Acetaminophen 325 Mg Tab) 650 mg PO Q4H PRN PRN Reason: Pain MILD(1-3)/Fever >100.5/ZHAO Aspirin (Aspirin Ec 81 Mg Tab) 81 mg PO QDAY [facility] Last Admin: 03/27/21 14:20 Dose: 81 mg Documented by: Atorvastatin Calcium (Atorvastatin 40 Mg Tab) 40 mg PO QHS [facility] Heparin Sodium (Porcine) (Heparin 5,000 Unit/1 Ml Vial) 5,000 unit SUB-Q Q8HR [facility] Last Admin: 03/27/21 14:22 Dose: 5,000 unit Documented by: Hydralazine HCl (Hydralazine 20 Mg/1 Ml Inj) 10 mg IV Q4H PRN PRN Reason: Blood Pressure Losartan Potassium (Losartan 50 Mg Tab) 50 mg PO QDAY [facility] Last Admin: 03/27/21 14:22 Dose: 50 mg Documented by: Magnesium Hydroxide (Magnesium Hydroxide (Mom) Oral Liqd Udc) 30 ml PO Q4H PRN PRN Reason: Constipation Metoprolol Succinate (Metoprolol Succinate Xl 50 Mg Tab) 50 mg PO QDAY [facility] Last Admin: 03/27/21 14:20 Dose: 50 mg Documented by: Morphine Sulfate (Morphine 2 Mg/1 Ml Inj) 2 mg IV Q5MIN PRN PRN Reason: Chest Pain Last Admin: 03/27/21 04:24 Dose: 2 mg Documented by: Morphine Sulfate (Morphine 2 Mg/1 Ml Inj) 2 mg IV Q6H PRN PRN Reason: Pain, Moderate (4-6) Last Admin: 03/27/21 14:20 Dose: 2 mg Documented by: Nitroglycerin (Nitroglycerin 0.4 Mg Tab Subl) 0.4 mg SL Q5M PRN PRN Reason: Chest Pain Ondansetron HCl (Ondansetron 4 Mg/2 Ml Inj) 4 mg IV Q8H PRN PRN Reason: Nausea And Vomiting Pantoprazole Sodium (Pantoprazole 40 Mg Inj) 40 mg IV QDAY [facility] Last Admin: 03/27/21 10:00 Dose: Not Given Documented by: Prasugrel (Prasugrel 10 Mg Tab) 10 mg PO QDAY [facility] Last Admin: 03/27/21 14:21 Dose: 10 mg Documented by: Sodium Chloride (Sodium Chloride 0.9% 10 Ml Flush Syringe) 10 ml IV BID [facility] Last Admin: 03/27/21 14:19 Dose: 10 ml Documented by: Sodium Chloride (Sodium Chloride 0.9% 10 Ml Flush Syringe) 10 ml IV PRN PRN PRN Reason: LINE FLUSH I HAVE REVIEWED AND RECONCILED MEDICATIONS Review of Systems - Review of Systems All systems: negative (as noted in the HPI) Exam - Constitutional Vital Signs: Temp Pulse Resp BP Pulse Ox 98.6 F 80 18 175/86 97 03/27/21 17:26 03/27/21 16:42 03/27/21 16:41 03/27/21 17:26 03/27/21 16:41 General appearance: no acute distress - EENT Eyes: PERRL, EOM intact ENT: hearing intact, clear oral mucosa, dentition normal - Neck Neck: supple, normal ROM - Respiratory Respiratory effort: normal Respiratory: bilateral: CTA - Cardiovascular Rhythm: regular Heart Sounds: Present: S1 & S2 Extremities: no ischemia, No edema - Gastrointestinal General gastrointestinal: Present: soft, non-tender, non-distended - Integumentary Integumentary: Present: clear, warm, dry - Neurologic Neurological: alert and oriented x3 - Labs CBC & Chem 7: 03/27/21 04:28 03/27/21 04:28 Lab Results: Laboratory Results - last 24 hr 03/26/21 03/26/21 03/26/21 15:26 17:13 21:16 WBC RBC Hgb Hct MCV MCH MCHC RDW Plt Count Lymph % (Auto) Burt % (Auto) Eos % (Auto) Baso % (Auto) Lymph # (Auto) Burt # (Auto) Eos # (Auto) Baso # (Auto) Add Manual Diff Total Counted Seg Neutrophils % Seg Neuts % (Manual) Lymphocytes % (Manual) Monocytes % (Manual) Basophils % (Manual) Nucleated RBC % Seg Neutrophils # Seg Neutrophils # Man Band Neutrophils # Lymphocytes # (Manual) Abs React Lymphs (Man) Monocytes # (Manual) Eosinophils # (Manual) Basophils # (Manual) Metamyelocytes # Myelocytes # Promyelocytes # Blast Cells # WBC Morphology Hypersegmented Neuts Hyposegmented Neuts Hypogranular Neuts Smudge Cells Toxic Granulation Toxic Vacuolation Dohle Bodies Pelger-Huet Anomaly Lee Rods Platelet Estimate Clumped Platelets Plt Clumps, EDTA Large Platelets Giant Platelets Platelet Satelliting Plt Morphology Comment RBC Morphology Dimorphic RBCs Polychromasia Hypochromasia Poikilocytosis Anisocytosis Microcytosis Macrocytosis Spherocytes Pappenheimer Bodies Sickle Cells Target Cells Tear Drop Cells Ovalocytes Helmet Cells Ayala-Part[place] Bodies [place] Rings Claude Cells Bite Cells Crenated Cell Elliptocytes Acanthocytes (Spur) Rouleaux Hemoglobin C Crystals Schistocytes Malaria parasites Harsha Bodies Hem Pathologist Commnt PT INR Sodium 144 Potassium 4.4 Chloride 104.7 Carbon Dioxide 15 L Anion Gap 29 BUN 13 Creatinine 0.6 Estimated GFR > 60 BUN/Creatinine Ratio 22 Glucose 45 L Calcium 8.9 Total Bilirubin 0.50 AST 48 H ALT 17 Alkaline Phosphatase 101 Troponin T < 0.010 < 0.010 < 0.010 Total Protein 6.7 Albumin 4.3 Albumin/Globulin Ratio 1.8 Triglycerides Cholesterol LDL Cholesterol Direct HDL Cholesterol Cholesterol/HDL Ratio 03/27/21 03/27/21 03/27/21 04:28 04:28 04:28 WBC 4.6 RBC 3.81 Hgb 13.1 Hct 38.4 MCV 101 H MCH 34 H MCHC 34 RDW 12.7 L Plt Count 242 Lymph % (Auto) 12.7 L Burt % (Auto) 0.6 Eos % (Auto) 1.2 Baso % (Auto) 1.4 Lymph # (Auto) 0.6 L Burt # (Auto) 0.0 Eos # (Auto) 0.1 Baso # (Auto) 0.1 Add Manual Diff Complete Total Counted 100 Seg Neutrophils % 54.7 Seg Neuts % (Manual) 27.0 L Lymphocytes % (Manual) 65.0 H Monocytes % (Manual) 7.0 Basophils % (Manual) 1.0 Nucleated RBC % Not Reportable Seg Neutrophils # 2.5 Seg Neutrophils # Man 1.2 L Band Neutrophils # 0.0 Lymphocytes # (Manual) 3.0 Abs React Lymphs (Man) 0.0 Monocytes # (Manual) 0.3 Eosinophils # (Manual) 0.0 Basophils # (Manual) 0.0 Metamyelocytes # 0.0 Myelocytes # 0.0 Promyelocytes # 0.0 Blast Cells # 0.0 WBC Morphology Not Reportable Hypersegmented Neuts Not Reportable Hyposegmented Neuts Not Reportable Hypogranular Neuts Not Reportable Smudge Cells Not Reportable Toxic Granulation Not Reportable Toxic Vacuolation Not Reportable Dohle Bodies Not Reportable Pelger-Huet Anomaly Not Reportable Lee Rods Not Reportable Platelet Estimate Consistent w auto Clumped Platelets Not Reportable Plt Clumps, EDTA Not Reportable Large Platelets Not Reportable Giant Platelets Not Reportable Platelet Satelliting Not Reportable Plt Morphology Comment Not Reportable RBC Morphology Not Reportable Dimorphic RBCs Not Reportable Polychromasia Not Reportable Hypochromasia Not Reportable Poikilocytosis Not Reportable Anisocytosis Not Reportable Microcytosis Not Reportable Macrocytosis Not Reportable Spherocytes Not Reportable Pappenheimer Bodies Not Reportable Sickle Cells Not Reportable Target Cells Not Reportable Tear Drop Cells Not Reportable Ovalocytes Not Reportable Helmet Cells Not Reportable Ayala-[place] Bodies Not Reportable [place] Rings Not Reportable Claude Cells Not Reportable Bite Cells Not Reportable Crenated Cell Not Reportable Elliptocytes Not Reportable Acanthocytes (Spur) Not Reportable Rouleaux Not Reportable Hemoglobin C Crystals Not Reportable Schistocytes Not Reportable Malaria parasites Not Reportable Harsha Bodies Not Reportable Hem Pathologist Commnt No PT INR Sodium 141 Potassium 3.3 L D Chloride 103.1 Carbon Dioxide 26 D Anion Gap 15 BUN 9 Creatinine 0.6 Estimated GFR > 60 BUN/Creatinine Ratio 15 Glucose 62 L Calcium 8.5 Total Bilirubin AST ALT Alkaline Phosphatase Troponin T Total Protein Albumin Albumin/Globulin Ratio Triglycerides 133 Cholesterol 168 LDL Cholesterol Direct 91 HDL Cholesterol 65 H Cholesterol/HDL Ratio 2.58 03/27/21 03/27/21 04:28 07:28 WBC RBC Hgb Hct MCV MCH MCHC RDW Plt Count Lymph % (Auto) Burt % (Auto) Eos % (Auto) Baso % (Auto) Lymph # (Auto) Burt # (Auto) Eos # (Auto) Baso # (Auto) Add Manual Diff Total Counted Seg Neutrophils % Seg Neuts % (Manual) Lymphocytes % (Manual) Monocytes % (Manual) Basophils % (Manual) Nucleated RBC % Seg Neutrophils # Seg Neutrophils # Man Band Neutrophils # Lymphocytes # (Manual) Abs React Lymphs (Man) Monocytes # (Manual) Eosinophils # (Manual) Basophils # (Manual) Metamyelocytes # Myelocytes # Promyelocytes # Blast Cells # WBC Morphology Hypersegmented Neuts Hyposegmented Neuts Hypogranular Neuts Smudge Cells Toxic Granulation Toxic Vacuolation Dohle Bodies Pelger-Huet Anomaly Lee Rods Platelet Estimate Clumped Platelets Plt Clumps, EDTA Large Platelets Giant Platelets Platelet Satelliting Plt Morphology Comment RBC Morphology Dimorphic RBCs Polychromasia Hypochromasia Poikilocytosis Anisocytosis Microcytosis Macrocytosis Spherocytes Pappenheimer Bodies Sickle Cells Target Cells Tear Drop Cells Ovalocytes Helmet Cells Ayala-[place] Bodies [place] Rings Claude Cells Bite Cells Crenated Cell Elliptocytes Acanthocytes (Spur) Rouleaux Hemoglobin C Crystals Schistocytes Malaria parasites Harsha Bodies Hem Pathologist Commnt PT 12.0 L INR 0.90 Sodium Potassium Chloride Carbon Dioxide Anion Gap BUN Creatinine Estimated GFR BUN/Creatinine Ratio Glucose Calcium Total Bilirubin AST ALT Alkaline Phosphatase Troponin T < 0.010 Total Protein Albumin Albumin/Globulin Ratio Triglycerides Cholesterol LDL Cholesterol Direct HDL Cholesterol Cholesterol/HDL Ratio Assessment and Plan - Patient Problems (1) History of pancreatitis Status: Acute (2) Abdominal pain Status: Acute Qualifiers: Abdominal location: upper abdomen, unspecified Qualified Code(s): R10.10 - Upper abdominal pain, unspecified Plan to address problem: - Labs and imaging not worrisome, and patient's exam not indicative of severe organic illness. - Informed patient to stop EtOH and f/u with surgeon for CCY. - Would continue protonix, but avoid excess narcotics. - No further recs at present; will sign off; please call if needed.
[2021-03-28] MEDS ORDERED: ASPIRIN EC 81 MG TAB PO SCH (10:00)
--- NOTE | 2021-03-29 17:09 | Electrocardiograph Report ---
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
--- NOTE | 2021-03-29 17:19 | Electrocardiograph Report ---
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
== END 2021-03-27 17:43 | disposition home or self-care (01) ==
LOC: ED 12:47 → 4A 22:23
PROVIDERS: ADMIT Internal Medicine Geriatric Medicine; ATTEND Internal Medicine
DX: R07.89 Other chest pain (principal); I10 Essential (primary) hypertension; R10.10 Upper abdominal pain, unspecified; I25.10 Atherosclerotic heart disease of native coronary artery without angina pectoris; F17.210 Nicotine dependence, cigarettes, uncomplicated; Z79.899 Other long term (current) drug therapy; Z98.890 Other specified postprocedural states; Z95.1 Presence of aortocoronary bypass graft; Z79.82 Long term (current) use of aspirin
CPT/HCPCS: 36415; 71046; 76705; 80048; 80053; 80061; 83690; 84484; 85025; 85610; 93005; 93306; 96361; 96372; 96374; 96376; 99285; 99406; G0378; J1644; J2270; J7030; Q0163; 85007

== ENCOUNTER 2022-03-05 14:07 | Emergency (ER) | payer SELFPAY ==
--- NOTE | 2022-03-05 15:50 | Emergency Department Report ---
HPI - General Chief Complaint: Upper Respiratory Infection Time Seen by Provider: 03/05/22 15:27 - HPI HPI: Since yesterday patient has been experiencing severe nasal congestion with purulent discharge as well as a moderate to severe frontal and maxillary headache worse with bending forward and not better with anything. The patient has taken TheraFlu and a couple of other utob-wvm-vpbmnui remedies that have not helped her. Her sister just infected her with a coronavirus that is not COVID- 19 when she came back from [place]. Her sister tested negative for COVID-19. The patient denies nausea vomiting chills shortness of breath chest pain focal weakness or any other associated symptoms. ED Past Medical Hx - Past Medical History Hx Heart Attack/AMI: Yes (STENT X2) Additional medical history: PANCREATITIS - Surgical History Past Surgical History?: No Additional Surgical History: Heart stents - Social History Smoking Status: Current Every Day Smoker - Medications Home Medications: Home Medications Medication Instructions Recorded Confirmed Last Taken Type Pantoprazole [Protonix TAB] 40 mg PO QDAY #30 tablet 03/27/21 Unknown Rx Amoxicillin/Potassium Clav 1 each PO BID 10 Days #20 03/05/22 Unknown Rx [Augmentin 875-125 Tablet] HYDROcodone/APAP 5-325 [[place] 1 each PO Q6HR PRN #10 tablet 03/05/22 Unknown Rx 5/325] Oxymetazoline 0.05% [Vicks Sinex] 2 spray NS BID PRN #1 bottle 03/05/22 Unknown Rx ED Review of Systems ROS: Stated complaint: SERVERE HEADACHE/NASEAU/FATIQUE/ SWEATS Other details as noted in HPI Comment: All other systems reviewed and negative Physical Exam - Physical Exam Vital Signs: Vital Signs 03/05/22 14:50 Temperature 99.5 F Pulse Rate 88 Respiratory 16 Rate Blood Pressure 152/87 O2 Sat by Pulse 97 Oximetry Physical Exam: Physical Exam: Constitutional: AAOX3. No acute distress. No diaphoresis. HENT: Normocephalic. Pupils equal and reactive. No throat edema or erythema. The patient has bilateral turbinate nasal congestion with clear purulent discharge and tenderness to palpation on her maxillary and frontal sinuses. Neck: No neck rigidity or tenderness. Cardiovascular: Heart sounds: No murmur. Normal rate and regular rhythm. Pulses: Intact distal pulses. Lungs: No wheezing or rales. Chest wall: No tenderness. Abdominal: No distension. No mass/pulsatile mass. No abdominal tenderness, guarding nor rebound. Musculoskeletal: Normal range of motion. No edema, No calf TTP. Skin: Warm and dry. Neurological: Alert and oriented to person, place, and time. Psychiatric: Mood and affect normal. Normal cognition and memory. Normal judgement. ED Course Vital Signs 03/05/22 14:50 Temperature 99.5 F Pulse Rate 88 Respiratory 16 Rate Blood Pressure 152/87 O2 Sat by Pulse 97 Oximetry Critical care attestation.: If time is entered above; I have spent that time in minutes in the direct care of this critically ill patient, excluding procedure time. ED Disposition Clinical Impression: Sinusitis, Upper respiratory infection Disposition: HOME / SELF CARE / HOMELESS Is pt being admited?: No Does the pt Need Aspirin: No Condition: Stable Instructions: Viral Respiratory Infection, [id number]-[id number], Sinusitis, Adult, Orhd-de-Lyap Prescriptions: Amoxicillin/Potassium Clav [Augmentin 875-125 Tablet] 1 each PO BID 10 Days #20 HYDROcodone/APAP 5-325 [[place] 5/325] 1 each PO Q6HR PRN #10 tablet PRN Reason: Pain Oxymetazoline 0.05% [Vicks Sinex] 2 spray NS BID PRN #1 bottle PRN Reason: Congestion Forms: Work/School Release Form(ED) Time of Disposition: 15:50 Print Language: MOROCC[place]
[2022-03-05 16:29] VITALS: BP 153/93
== END 2022-03-05 16:57 | disposition home or self-care (01) ==
LOC: ED 14:07
DX: J32.9 Chronic sinusitis, unspecified (principal); J06.9 Acute upper respiratory infection, unspecified; F17.200 Nicotine dependence, unspecified, uncomplicated
CPT/HCPCS: 99282